=== PATIENT | male | born 1995 | race Caucasian/White ===

== ENCOUNTER 2020-03-18 10:08 | Emergency (ER) | payer MEDICAID, SELFPAY ==
[2020-03-18 10:15] VITALS: BP 130/56; PULSE 103; RESP 18; TEMP 36.6; O2SAT 99
--- NOTE | 2020-03-18 10:30 | DI.RAD_ITS ---
EXAM: XR WRIST RT COMPLETE CLINICAL HISTORY: fall injury TECHNIQUE: COMPARISON: No exams were available for comparison FINDINGS: Three views were obtained. There is a slight ulnar minus variance. Otherwise alignment appears with in normal limits. No fracture is seen. IMPRESSION:
--- NOTE | 2020-03-18 10:30 | DI.RAD_ITS ---
EXAM: XR ELBOW RT COMPLETE CLINICAL HISTORY: fall injury TECHNIQUE: COMPARISON: CR XR ELBOW LT COMPLETE from 03/18/2020 FINDINGS: Three views were obtained. There is fracture of the radial head and neck with minimal displacement. There is a joint effusion. No other bony abnormality seen. IMPRESSION:
--- NOTE | 2020-03-18 10:30 | DI.RAD_ITS ---
EXAM: XR ELBOW LT COMPLETE CLINICAL HISTORY: fall injury TECHNIQUE: COMPARISON: No exams were available for comparison FINDINGS: Three views were obtained. There is a minimally displaced fracture of the radial head involving the distal articular surface with Longitudinal alignment of the fracture plane. There is a joint effusion. No other fracture is ident ified. IMPRESSION:
--- NOTE | 2020-03-18 10:48 | ED.GENADUL_ITS ---
Discharge Plan Disposition Patient Disposition: HOME Condition: Stable Discharge Details Chief Complaint: Orthopedic Clinical Impression: Bilateral elbow fractures Primary Care Provider: Alexander Jc ED Provider: Tariq Mojica Home Meds and New Rx's Prescriptions: New oxycodone-acetaminophen [Percocet] 5-325 mg tablet 1 tab PO Q6H PRN (Reason: pain) Qty: 8 RF: 0 Discharge Instructions Instructions: Elbow Fracture (ED) Additional Instructions: Percocet as directed, remember this may cause drowsiness and/or constipation. Arwg-ung-milqnoy stool softener may be beneficial. Wear sling until reevaluation with orthopedics in the next week, I have placed you on the callback list and also given you their name and number. If you do not hear from them in the next 24 hours I recommend reaching out to them. Rest, elevate, cool compresses every 2 hours for 20 minutes. You may also use [id number] anti-inflammatory medication as directed for symptomatic control. Please watch for new or worsening symptoms and return to the ER for any concerns. Referrals: Adilson Malik MD [ [facility] STAFF PHYSICIAN] - Medical Decision Making 25-year-old gentleman with autism presents with his mother after multiple falls today. Falls were all mechanical. Patient denies striking his head during these falls. His only concerns are right elbow pain right wrist pain, left elbow pain, left ankle pain. His highest concern is that of the right elbow. Mother reports that he is at baseline. He appears well, nontoxic, no acute distress. Neuro, vascular, tendon intact. Will obtain x-ray of right wrist, right elbow, left elbow. Patient only has minimal swelling and discomfort to the left ankle, he is able to bear weight fully. I do not believe x-ray of the ankle is indicated. 800 mg p.o. Motrin given Left elbow x-ray read by me as radial head fracture. Right wrist x-ray read by me as no fracture. Right elbow x-ray read by me as radial head and neck fracture with minimal displacement. X-rays were then confirmed through radiology. Discussed x-rays with patient and mother. We discussed options. Both arms were placed in a sling. Patient tolerated well. Patient does live with both parents but spend more time at his father's house. Mother reports that she is an RN. We discussed in length whether or not care management need to be involved and help expedite outpatient care. She reports that she feels as though they have all the support and care they need as an outpatient and does not believe that a care management consultation is required. She is quite comfortable taking him home in his current condition. I will provide him a short-term prescription of analgesia, provide a referral to orthopedics, and place him on the orthopedic callback list to help expedite care. Medical Records Medical records reviewed: Yes I reviewed the patient's medical records. HPI General Mode of arrival: ambulatory . Date/Time Provider Initiated Documentation: 03/18/20 10:12 . Limitations to Documentation: no limitations . Information obtained by: patient and family . HPI Narrative: This is a 25-year-old gentleman with a history of autism presenting to the ER with his mother. Reports that he had 3 separate mechanical falls today. He denies striking his head during any of these falls. He reports he initially injured his right elbow and wrist, subsequently injured his left elbow and left ankle. He reports the pain in his right elbow and wrist is the worst, moderate at rest, worse with movement. Left elbow and left ankle mild discomfort. Patient is able to bear weight without difficulty. Denies numbness, tingling, weakness. Did not break the skin. Has not taken any medication [id number]. Related Data Home Medications Medication Instructions Recorded Confirmed oxycodone-acetaminophen [Percocet] 1 tab PO Q6H PRN #8 tab 03/18/20 Previous Rx's Medication Instructions Recorded oxycodone-acetaminophen [Percocet] 1 tab PO Q6H PRN #8 tab 03/18/20 Allergies Allergy/AdvReac Type Severity Reaction Status Date / Time Sulfa (Sulfonamide Allergy Unknown Unverified 03/18/20 10:22 Antibiotics) General Stated Complaint: Orthopedic BONIFACIO: 3 Review of Systems Constitutional Constitutional: Denies headache(s) and Denies weakness Eyes Eyes: Denies change in vision ENT Ears, Nose, Mouth, and Throat: Denies headache(s) and Denies neck pain Cardiovascular Cardiovascular: Denies chest pain and Denies dyspnea Respiratory Respiratory: Denies dyspnea Gastrointestinal Gastrointestinal: Denies nausea Musculoskeletal Musculoskeletal: Denies back pain, Denies neck pain, Denies numbness and Denies tingling Integumentary/Breasts Skin/Breast: Denies rash Neurologic Neurologic: Denies headache(s), Denies numbness, Denies tingling and Denies weakness [facility] Social History Smoking/Tobacco Use Status: Never Alcohol Intake: current Substance use type: does not use Do you feel safe at home: Yes Do you feel safe in your relationship?: Yes Exam Const General: cooperative, healthy appearing, comfortable and no acute distress Orientation: alert, awake and oriented x3 HENMT Head: normal to inspection, normocephalic and atraumatic Face and sinus: normal facial exam Mouth: moist mucous membranes Eyes General: appearance normal, both eyes and all related structures Alignment and Position: alignment normal Periorbital: periorbital findings normal Eyelids: eyelids normal Conjunctivae: conjunctivae normal Sclera: sclerae normal Cornea: corneas normal Pupils: PERRL EOM: EOM intact bilaterally Neck Neck: normal visual inspection, full ROM, trachea midline, supple and nontender Resp Effort & Inspection: normal respiratory effort and able to speak in complete sentences Cardio Rate: regular rate Rhythm: regular rhythm GI Palpation: soft and nontender Back/Spine/Pelvis Back: No back tenderness Skin General skin exam: no rashes or lesions noted Neuro General: patient alert, patient awake, moves all extremities, no focal motor deficits and other (Patient at baseline per mother) Cognition: normal cognition Speech: speech normal Gait: normal gait Motor: muscle tone normal throughout Sensory Exam: no sensory deficits noted Extrem Right upper extremity: shoulder/upper arm Details: normal to inspection and normal ROM; no tenderness, elbow/forearm Details: tenderness Location: of the olecranon, of the antecubital fossa and of the radial head and abnormal ROM Details: with range as follows (Limited extension and flexion) and wrist Details: normal to inspection and tenderness (Diffuse mild) Left upper extremity: shoulder/upper arm Details: inspection abnormal and normal ROM and elbow/forearm Details: tenderness Location: of the olecranon, of the antercubital fossa and of the radial head and abnormal ROM (Limited extension and flexion) Right lower extremity: normal to inspection, full ROM and normal capillary refill Left lower extremity: full ROM, normal capillary refill and ankle Details: tenderness (Minimal lateral aspect) and swelling (Minimal lateral aspect) Psych Appearance: grossly normal Mental Status: mental status grossly normal Course Vital Signs Vital signs: Vital Signs Temperature 36.6 C 03/18/20 10:15 Pulse 103 H 03/18/20 10:15 Respiratory Rate 18 03/18/20 10:15 Blood Pressure 130/56 L 03/18/20 10:15 Pulse Oximetry 99 03/18/20 10:15 Temperature 36.6 C 03/18/20 10:15 Temperature Source Temporal Artery Scan 03/18/20 10:15 Pulse 103 H 03/18/20 10:15 Respiratory Rate 18 03/18/20 10:15 Respiratory Effort Non-Labored 03/18/20 10:22 Blood Pressure 130/56 L 03/18/20 10:15 Pulse Oximetry 99 03/18/20 10:15 Oxygen Delivery Method Room Air 03/18/20 10:15 Oxygen Flow Rate 0 03/18/20 10:15 Pain Level 10 03/18/20 10:15
[2020-03-18] MEDS: Ibuprofen 800 MG TAB PO (11:35)
== END 2020-03-18 12:34 | disposition home or self-care (01) ==
PROVIDERS: Emergency Provider Physician Assistant; PCP Family Medicine
DX: S52.122A Displaced fracture of head of left radius, initial encounter for closed fracture (principal); S52.121A Displaced fracture of head of right radius, initial encounter for closed fracture; M25.531 Pain in right wrist; M25.562 Pain in left knee; W19.XXXA Unspecified fall, initial encounter; F84.0 Autistic disorder
CPT/HCPCS: 24650; 99284; 73080; 73110; 99282; L3650

== ENCOUNTER 2020-03-26 09:38 | Outpatient (CLI) | payer MEDICAID, SELFPAY ==
--- NOTE | 2020-03-26 09:15 | DI.RAD_ITS ---
EXAM: XR ELBOW RT COMPLETE CLINICAL HISTORY: f/u fracture. TECHNIQUE: 2D digital imaging was performed. COMPARISON: CR XR ELBOW RT COMPLETE from 03/18/2020 FINDINGS: BONES: No change in alignment of the fracture involving the right radial neck and head. No bony dest ructive lesion is seen. JOINTS: The elbow is normally aligned. Joint effusion. SOFT TISSUE: Normal. IMPRESSION: Stable radial fracture. DATA REPOSITORY: RADIATION DOSE DELIVERED:
--- NOTE | 2020-03-26 09:15 | DI.RAD_ITS ---
EXAM: XR ELBOW LT COMPLETE CLINICAL HISTORY: f/u fracture. TECHNIQUE: 2D digital imaging was performed. COMPARISON: CR XR ELBOW LT COMPLETE from 03/18/2020 FINDINGS: BONES: There has been no change in alignment of the radial head fracture. No bony destructive lesion is seen. JOINTS: The elbow is normally aligned. Small joint effusion. SOFT TISSUE: Normal. IMPRESSION: Stable radial head fracture. DATA REPOSITORY: RADIATION DOSE DELIVERED:
== END 2020-03-26 09:58 ==
PROVIDERS: PCP Family Medicine; Referring Provider Family Medicine; Visit Provider Student in an Organized Health Care Education/Training Program
DX: S52.134D Nondisplaced fracture of neck of right radius, subsequent encounter for closed fracture with routine healing (principal); S52.125D Nondisplaced fracture of head of left radius, subsequent encounter for closed fracture with routine healing
CPT/HCPCS: 73080

== ENCOUNTER 2020-04-19 15:30 | Outpatient (CLI) | payer MEDICAID, SELFPAY ==
--- NOTE | 2020-04-19 15:00 | DI.RAD_ITS ---
EXAM: XR ELBOW LT LIMITED INDICATION: eval healing. COMPARISON: CR XR ELBOW LT COMPLETE from 03/18/2020 CR XR ELBOW RT COMPLETE from 03/18/2020 CR XR WRIST RT COMPLETE from 03/18/2020 CR XR ELBOW LT COMPLETE from 03/26/2020 CR XR ELBOW RT COMPLETE from 03/26/2020 TECHNIQUE: 2D digital imaging was performed. FINDINGS: The fracture of the radial head and neck remains nondisplaced. There is mild increased callus format ion. A joint effusion remains present. No new abnormalities are seen. DATA REPOSITORY: RADIATION DOSE DELIVERED:
--- NOTE | 2020-04-19 15:20 | DI.RAD_ITS ---
EXAM: XR ELBOW RT LIMITED INDICATION: f/u right radius fracture. COMPARISON: CR XR ELBOW RT COMPLETE from 03/26/2020 CR XR ELBOW LT LIMITED from 04/19/2020 TECHNIQUE: 2D digital imaging was performed. FINDINGS: There is now mild callus formation seen at the site of the proximal radial neck. The joint effusion has decreased. No new abnormalities are seen. DATA REPOSITORY: RADIATION DOSE DELIVERED:
== END 2020-04-19 15:50 ==
PROVIDERS: PCP Family Medicine; Referring Provider Family Medicine; Visit Provider Student in an Organized Health Care Education/Training Program
DX: S52.131A Displaced fracture of neck of right radius, initial encounter for closed fracture (principal); S52.132A Displaced fracture of neck of left radius, initial encounter for closed fracture; S52.122A Displaced fracture of head of left radius, initial encounter for closed fracture; M25.422 Effusion, left elbow
CPT/HCPCS: 73070

== ENCOUNTER 2022-03-03 02:54 | Outpatient (CLI) | payer MEDICAID, SELFPAY ==
[2022-03-03 11:49] LABS: Abs Immature Grans 0.01 10^3/uL (0.0-0.06); Absolute Eosinophil Count 0.15 10^3/uL (0.0-0.7); Absolute Lymphocyte Count 2.48 10^3/uL (1.2-3.4); Absolute Monocyte Count 0.53 10^3/uL (0.1-0.8); Absolute Neutrophil Count 4.17 10^3/uL (1.2-6.7); Basophils % 1.3; HCT 44.3 % (40.0-50.0); HGB 15.2 g/dL (13.5-17.5); Immature Grans % 0.1; Lymphocytes % 33.3; MCHC 34.3 % (32.0-36.0); MCV 85 fL (80-95); MPV 8.3 fL (8.0-11.0); Monocytes % 7.1; Neutrophils % 56.2; Platelet Count 269 10^3/uL (130-400); RBC 5.24 10^6/uL (4.36-5.78); RDW 12.6 % (11.8-14.1); RDW-SD 38.8 fL; WBC 7.44 10^3/uL (4.4-10.8)
[2022-03-03 13:01] LABS: Anion Gap 4.4 mmol/L (3-11); BUN 17 mg/dL (7-18); CO2 32.6 mmol/L (21.0-32.0); Calcium 9.1 mg/dL (8.5-10.1); Calculated LDL 122 mg/dL (<100); Chloride 101 mmol/L (98-107); Cholesterol 194 mg/dL (<200); Glucose 87 mg/dL (74-106); HDL Cholesterol 48 mg/dL (40-60); Potassium 3.8 mmol/L (3.5-5.1); Sodium 138 mmol/L (136-145); TSH (W/Ref FT4) 2.73 uIU/mL (0.36-3.74); Triglyceride 121 mg/dL (<150)
== END 2022-03-03 02:55 | disposition home or self-care (01) ==
LOC: LBO 02:55
PROVIDERS: PCP Family Medicine; Visit Provider Family Medicine
DX: E03.9 Hypothyroidism, unspecified (principal); L64.8 Other androgenic alopecia; E66.09 Other obesity due to excess calories; Z68.39 Body mass index [BMI] 39.0-39.9, adult
CPT/HCPCS: 36415; 80048; 80061; 84443; 85025

== ENCOUNTER → 2022-05-01 02:43 | Outpatient (CLI) | payer MEDICAID, SELFPAY ==
--- NOTE | 2022-05-01 07:30 | DI.US_ITS ---
Exam(s) US HERNIA EXAM: US HERNIA CLINICAL HISTORY: r/o inguinal hernia, rt inguinal pain, R10.31 rt lower quad pain. TECHNIQUE: Ultrasound was performed using standard protocol. COMPARISON: No exams were available for comparison FINDINGS: Sonographic assessment utilizing grayscale and color Doppler imaging was performed and targeted to th e area of clinical concern. There does appear to be a small fat containing hernia in the right inguinal region. IMPRESSION: Findings suggestive of a small fat containing right inguinal hernia. A CT scan may be obtained for f urther evaluation. DATA REPOSITORY:
== END ==
PROVIDERS: PCP Family Medicine; Visit Provider Nurse Practitioner Family
DX: K40.90 Unilateral inguinal hernia, without obstruction or gangrene, not specified as recurrent
CPT/HCPCS: 76857

== ENCOUNTER 2022-05-26 08:02 | Day surgery (SDC) | payer MEDICAID, SELFPAY ==
--- NOTE | 2022-05-25 17:14 | PDOC.DSDIS_ITS ---
Discharge Plan Disposition Patient Disposition: HOME Condition: Good Discharge Details Reason For Visit: Right inguinal herniorraphy Attending Provider: uBcky Calvo Primary Care Provider: Laura Marsh Home Meds and New Rx's Prescriptions: New tramadol 100 mg tablet 100 mg PO BID PRN (Reason: pain) Qty: 6 0RF Rx Instructions: Take one tablet by mouth every 12 hours as needed for severe pain. Continued cholecalciferol (vitamin D3) 50 mcg (2,000 unit) capsule 50 mcg PO DAILY multivit with [id number] 0.4-600 mg-mcg tablet 1 tab PO DAILY Discharge Instructions Instructions: Inguinal Hernia Repair (DC) Additional Instructions: 1. Resume all of your medications. 2. Okay to use tylenol and ibuprofen over the counter as needed. 3. Use tramadol as needed for severe pain. 4. Leave bandage in place for 24 hours, then remove. 5. Shower with warm soapy water. Pat dry. Use a bandaid if needed to protect your clothing. 6. No soaking or tub baths until I see you in the office. 7. No heavy lifting until I see you in the office. 8.Call the office (or go directly to the emergency room after hours) if you notice any of the following: Develop chills (warm to touch), or if you have a thermometer and your temperature is above 101 Difficulty breathing or difficultly swallowing Persistent vomiting Any bleeding ? exceeding one tablespoon 6. Call your physician if the site where your intravenous was started becomes red, swollen, painful, and warm to touch. Referrals: Bucky Calvo MD [ [facility] STAFF PHYSICIAN] - (10-14 days for follow up) Activity:: Activity as Tolerated Remove Dressings/Wound Care:: 24 hours Shower/Bathe:: 24 hours Diet:: As Tolerated Discharge Orders Discharge Orders: Discharge Order (Routine); Ordered 05/25/22 Ordered By: Bucky Calvo DS: Diagnosis Discharge Diagnosis (1) Direct inguinal hernia of right side: Status: Acute Asessment and Plan: Follow up with me 10-14 days for routine follow
--- NOTE | 2022-05-25 17:18 | W.PM.OP ---
Date of service: 05/26/22 Time of Service: 11:52 Operative Note Operative Note DATE OF PROCEDURE: 05/26/22 PRE-OP DIAGNOSIS: Right inguinal hernia POST-OP DIAGNOSIS: same Direct right-sided inguinal hernia PROCEDURE: Open right inguinal herniorraphy with mesh SURGEON: Bucky Calvo DAY HABILITATION SPECIALIST: Faustina Joyce ANESTHESIA TYPE: General LMA/ETT Refer to Anesthesia Record ESTIMATED BLOOD LOSS: 30 PATHOLOGY: none sent COMPLICATIONS: None Patient was transported to: PACU Patient's condition: stable Implants: Bard mesh Indications: Recently, while walking on the treadmill, he noticed some discomfort in the right groin.? The discomfort has become more frequent, and he underwent an ultrasound that confirmed the diagnosis of a right inguinal hernia.? He is referred to me for that.? He denies any sense of bulge in the area.? He says it is not particularly painful.? He denies any symptoms of obstruction like nausea, vomiting, or otherwise unintentional weight loss. Findings: Direct inguinal hernia Procedure Description: I began by confirming the correct site with the patient. Next, after induction of general anesthesia and tap block by the anesthesia service, I prepped and draped the site in usual fashion. I began by making an oblique incision over the right inguinal region. I dissected down through the skin to the deep fascia. Next, I incised the fascia along the length of the inguinal canal to the external ring. I then carefully identified the ilioinguinal nerve and divided it with Metzenbaum scissors for therapeutic neurolysis. Once this was complete, I bluntly dissected the shelving edge of the inguinal ligament down towards the pubic tubercle. There was a large direct inguinal hernia pushing through the inguinal floor. Carefully dissected the cord structures and encircled them a Bassem drain. Next, I began dissecting the specific cord structures. Great care was taken to spare the vas deferens and the blood supply to the testicle. Next, I isolated the hernia sac from the other inguinal structures. I traced back up to the internal ring. There was no indirect component. Therefore I reduced the direct inguinal hernia. Next, I rebuilt the posterior floor of the inguinal canal with a large mesh patch. I started by fixing it to the pubic tubercle. Next, I used Prolene sutures to affix it to the shelving edge of the inguinal ligament and the conjoint tendon. Laterally I tacked it to the transversalis fascia and reconstructed an internal ring without any strain on the cord structures. Once this was complete, I irrigated the surgical field. It appeared hemostatic. I then closed the anterior portion of the fascia to reconstruct the front wall of the inguinal canal. I did this with interrupted Vicryl stitches. Once again, I irrigated the surgical field and inspected for hemostasis. Finally, I approximated the superficial fascia and the deep layers of the skin with absorbable suture. Skin was closed with subcuticular stitches. Bandages were applied, the patient was awakened and transferred to the recovery unit.
[2022-05-26] VITALS (11 sets, daily range): BP systolic 121–137; BP diastolic 69–90; PULSE 73–85; RESP 14–21; TEMP 36.3–36.7; O2SAT 93–98; BMI 39.2
[2022-05-26] MEDS: Acetaminophen 500 MG TAB 1000 MG PO (08:45)
[2022-05-26] MEDS: Celecoxib 200 MG CAP PO (08:46)
[2022-05-26] MEDS: Gabapentin 300 MG CAP 600 MG PO (08:46)
[2022-05-26] MEDS: Lactated Ringers 1,000 ML 80 ML IV (09:20)
--- NOTE | 2022-05-26 09:21 | W.ANESPRE ---
General Info Date of Service Date Performed: 05/26/22 Height: 5 ft 10 in Weight: 123.8 kg Body Mass Index (BMI): 39.2 Surgical Procedure: Operation Date: 05/26/22 09:10 Proposed Procedure Side Surgeon p Herniorrhaphy Inguinal w/Mesh Right Bucky Calvo MD Meds Allergies and Home Medications Allergies Allergy/AdvReac Type Severity Reaction Status Date / Time Sulfa (Sulfonamide Allergy Unknown Unverified 05/26/22 08:30 Antibiotics) Home Medication Medication Instructions Recorded cholecalciferol (vitamin D3) 50 50 mcg PO DAILY 04/21/22 mcg (2,000 unit) capsule multivit with minerals-folic 1 tab PO DAILY 04/21/22 acid-lycopene 0.4 mg-600 mcg tablet Current Visit Medications: Current Medications Generic Name Dose Route Start Last Admin Trade Name Freq PRN Reason Stop Dose Admin Acetaminophen 1,000 mg 05/26/22 06:00 05/26/22 08:45 Acetaminophen 500 Mg Tab PO 05/26/22 23:59 1,000 mg PREOP DARON Administration Acetaminophen 650 mg 05/25/22 17:19 Acetaminophen 325 Mg Tab PO Q4H PRN PRN Celecoxib 200 mg 05/26/22 06:00 05/26/22 08:46 Celecoxib 200 Mg Cap PO 05/26/22 23:59 200 mg PREOP DARON Administration Gabapentin 600 mg 05/26/22 06:00 05/26/22 08:46 Gabapentin 300 Mg Cap PO 05/26/22 23:59 600 mg PREOP DARON Administration Ringer's Solution 1,000 mls @ 80 mls/hr 05/26/22 06:00 IV 05/26/22 23:59 INFUSION DARON Cefazolin Sodium/Dextrose 2 gm in 50 mls @ 100 mls/hr 05/26/22 06:00 Ancef Duplex IVPB 05/26/22 23:59 PREOP DARON Ondansetron HCl 4 mg/ Sodium 52 mls @ 200 mls/hr 05/25/22 17:19 Chloride IVPB Q6H PRN PRN IV Miscellaneous Supplies 1 each 05/26/22 06:00 Iv Access IV 05/26/22 23:59 DIRECTED DARON Morphine Sulfate 2 mg 05/25/22 17:19 Morphine 4 Mg/Ml Syr IVP Q1H PRN PRN Sodium Chloride 0 ml 05/26/22 06:00 Normal Saline Flush 10 Ml Syr IV 05/26/22 23:59 PRN PRN Sodium Chloride 0 ml 05/26/22 06:00 Normal Saline 10 Ml Vial IJ 05/26/22 23:59 DIRECTED PRN Sterile Water 0 ml 05/26/22 06:00 Water,Injection,Sterile 10 Ml Vial IJ 05/26/22 23:59 DIRECTED PRN Tramadol HCl 100 mg 05/25/22 17:19 Tramadol 50 Mg Tab PO Q6H PRN PRN Pain PFSH Active Problems Active Problems: Problem Status Onset Code Right inguinal hernia K40.90 Alopecia, male pattern L64.9 Elevated BP without diagnosis of hypertension R03.0 Body mass index [BMI] 39.0-39.9, adult Z68.39 Obesity without serious comorbidity E66.9 Autism F84.0 ADHD F90.9 Medical History Medical History Fracture of radial head, left, closed Fracture of radial neck, right, closed Keratosis pilaris Surgical History Surgical History S/P appendectomy Tobacco Smoking/Tobacco Use Status: Never Passive smoking exposure: Yes Alcohol Alcohol Intake: current Alcohol intake frequency: holidays/special occasions only Substance Use Substance use: Never Substance use type: does not use Vital Signs and Lab Results Vital Signs Most Recent Vital Signs in EMR: Most Recent Vital Signs Temp Pulse Resp BP Pulse Ox 36.7 C 81 18 126/85 98 05/26/22 08:15 05/26/22 08:15 05/26/22 08:15 05/26/22 08:15 05/26/22 08:15 Lab Results Blood Type / Crossmatch: No Data to Display Complete Blood Count: No Data to Display Complete Metabolic Panel: No Data to Display Liver Function Panel: No Data to Display Coagulation Panel: No Data to Display Cardiac Panel: No Data to Display Arterial Blood Gas: No Data to Display Venous Blood Gas: No Data to Display Pancreas Panel: No Data to Display Thyroid Panel: No Data to Display Infectious Disease: No Data to Display Blood Cultures: No Data to Display Toxicology Panel: No Data to Display Anesthesia Assessment and Plan Anesthesia History Personal History: No History of Anesthesia Complications Family History: No Family History of Anesthesia Complications Exercise Tolerance Exercise Tolerance: Metabolic Equivalents>4 Pertinent Negatives Pertinent Negatives: No Symptoms of GERD, No Major Cardiovascular Symptoms or Complaints, No Major Pulmonary Symptoms or Complaints and No History of CVA/TIA Cardiac & Pulmonary Exam Cardiac Exam: Normal S1/S2 Heart Sounds Pulmonary Exam: Clear Bilateral Breath Sounds Implantable Cardiac Device Does patient have a Pacemaker or an ICD?: No Airway Exam Known Difficult Airway: No Mallampati Class: 1 Mouth Opening: Normal (> 3cm) Thyromental Distance: Greater than 3 cm Facial Hair: Full Armstrong Neck Range of Motion: Full ROM Neck Circumference: Normal Teeth Condition: Normal Dentition ASA Classification ASA Score: ASA 2 Emergency Case?: No NPO Status NPO Status: NPO Clears >2 hours, Solids >8 hours Anesthesia Plan Resuscitation Status: Full Code Anesthesia Technique: General Anesthesia Airway Planned: LMA Monitors Used: Standard Monitors
[2022-05-26] MEDS: ceFAZolin 2 GM/50 ML BAG IVPB (10:06)
--- NOTE | 2022-05-26 10:16 | W.ANESNERVE ---
Nerve Block Single Injection Procedure Date and Time Date Performed: 05/26/22 Procedure Start: 09:55 Location Where Procedure Performed Procedure Location: Operating Room Procedure Stop: 10:00 Reason Performed: Postoperative Analgesia Requesting Provider: Bucky Calvo Timeout Performed Timeout Performed: Yes Monitoring Used ECG, Blood Pressure, SpO2 and ETCO2 Sterility Sterility: Hand Hygiene, Surgical Cap, Surgical Mask, Sterile Gloves, Eye Protection and Chlorhexidine Sedation Given During Procedure Sedation Given (Indicate Dose Given): Versed IV Dose:: 2mg, Propofol IV Dose:: 150 mcg/kg/min and Ketamine IV Dose:: 20mg Patient Mental Status Patient Mental Status: Performed under general anesthesia Nerve Block 1st Nerve Block: Laterality: Right Block Type: TAP Unilateral (right) Needle / Catheter Used: 100mm SonoPlex II Local Anesthetic Bolus (Indicate Dose Given): None, Bupivacaine 0.25% Dose:: 20 cc and Exparel Dose:: 10 cc Additives (Indicate Dose Given): None Ultrasound: Sterile probe cover and gel used Ultrasound Image Saved?: Yes Nerve Stimulator: Not Used Paresthesia: None Procedure Tolerated: No Complications and Patient tolerated well Procedure Outcome: Successful Performed By: Jose Campos
[2022-05-26] MEDS: Lidocaine 1% Multi-Dose W/EPI 1/100,000 50 ML VIAL (11:20)
--- NOTE | 2022-05-26 12:50 | W.ANESPRE ---
General Info Date of Service Date Performed: 05/26/22 Height: 5 ft 10 in Weight: 123.8 kg Body Mass Index (BMI): 39.2 Surgical Procedure: Operation Date: 05/26/22 09:10 Proposed Procedure Side Surgeon p Herniorrhaphy Inguinal w/Mesh Right Bucky Calvo MD Meds Allergies and Home Medications Allergies Allergy/AdvReac Type Severity Reaction Status Date / Time Sulfa (Sulfonamide Allergy Unknown Unverified 05/26/22 08:30 Antibiotics) Home Medication Medication Instructions Recorded cholecalciferol (vitamin D3) 50 50 mcg PO DAILY 04/21/22 mcg (2,000 unit) capsule multivit with minerals-folic 1 tab PO DAILY 04/21/22 acid-lycopene 0.4 mg-600 mcg tablet tramadol 100 mg tablet 100 mg PO BID PRN pain #6 tabs 05/26/22 Current Visit Medications: Current Medications Generic Name Dose Route Start Last Admin Trade Name Freq PRN Reason Stop Dose Admin Acetaminophen 1,000 mg 05/26/22 06:00 05/26/22 08:45 Acetaminophen 500 Mg Tab PO 05/26/22 23:59 1,000 mg PREOP DARON Administration Acetaminophen 650 mg 05/25/22 17:19 Acetaminophen 325 Mg Tab PO Q4H PRN PRN Celecoxib 200 mg 05/26/22 06:00 05/26/22 08:46 Celecoxib 200 Mg Cap PO 05/26/22 23:59 200 mg PREOP DARON Administration Ephedrine Sulfate 0 mg 05/26/22 10:23 Ephedrine 25 Mg/5 Ml Syringe IVP DIRECTED PRN Fentanyl 0 mcg 05/26/22 10:23 Fentanyl 100 Mcg/2 Ml Vial IVP DIRECTED PRN Gabapentin 600 mg 05/26/22 06:00 05/26/22 08:46 Gabapentin 300 Mg Cap PO 05/26/22 23:59 600 mg PREOP DARON Administration Ringer's Solution 1,000 mls @ 80 mls/hr 05/26/22 06:00 05/26/22 11:53 IV 05/26/22 23:59 80 mls/hr INFUSION DARON Infusion Cefazolin Sodium/Dextrose 2 gm in 50 mls @ 100 mls/hr 05/26/22 06:00 05/26/22 10:26 Ancef Duplex IVPB 05/26/22 23:59 Infused PREOP DARON Infusion Ondansetron HCl 4 mg/ Sodium 52 mls @ 200 mls/hr 05/25/22 17:19 Chloride IVPB Q6H PRN PRN Ringer's Solution 1,000 mls @ 30 mls/hr 05/26/22 10:30 IV INFUSION DARON IV Miscellaneous Supplies 1 each 05/26/22 06:00 Iv Access IV 05/26/22 23:59 DIRECTED DARON Morphine Sulfate 2 mg 05/25/22 17:19 Morphine 4 Mg/Ml Syr IVP Q1H PRN PRN Morphine Sulfate 0 mg 05/26/22 10:23 Morphine 10 Mg/Ml Vial IVP DIRECTED PRN Naloxone HCl 0 mg 05/26/22 10:23 Naloxone 0.4 Mg/Ml Vial IVP PRN PRN Ondansetron HCl 4 mg 05/26/22 10:23 Ondansetron 4 Mg/2 Ml Vial IVP .X 1 DOSE PRN Nausea Sodium Chloride 0 ml 05/26/22 06:00 Normal Saline Flush 10 Ml Syr IV 05/26/22 23:59 PRN PRN Sodium Chloride 0 ml 05/26/22 06:00 Normal Saline 10 Ml Vial IJ 05/26/22 23:59 DIRECTED PRN Sterile Water 0 ml 05/26/22 06:00 Water,Injection,Sterile 10 Ml Vial IJ 05/26/22 23:59 DIRECTED PRN Tramadol HCl 100 mg 05/25/22 17:19 Tramadol 50 Mg Tab PO Q6H PRN PRN Pain PFSH Active Problems Active Problems: Problem Status Onset Code Direct inguinal hernia of right side K40.90 Right inguinal hernia K40.90 Alopecia, male pattern L64.9 Elevated BP without diagnosis of hypertension R03.0 Body mass index [BMI] 39.0-39.9, adult Z68.39 Obesity without serious comorbidity E66.9 Autism F84.0 ADHD F90.9 Medical History Medical History Fracture of radial head, left, closed Fracture of radial neck, right, closed Keratosis pilaris Surgical History Surgical History S/P appendectomy Tobacco Smoking/Tobacco Use Status: Never Passive smoking exposure: Yes Alcohol Alcohol Intake: current Alcohol intake frequency: holidays/special occasions only Substance Use Substance use: Never Substance use type: does not use Vital Signs and Lab Results Vital Signs Most Recent Vital Signs in EMR: Most Recent Vital Signs Temp Pulse Resp BP Pulse Ox 36.3 C L 80 20 135/86 95 05/26/22 12:25 05/26/22 12:40 05/26/22 12:40 05/26/22 12:40 05/26/22 12:40 Lab Results Blood Type / Crossmatch: No Data to Display Complete Blood Count: No Data to Display Complete Metabolic Panel: No Data to Display Liver Function Panel: No Data to Display Coagulation Panel: No Data to Display Cardiac Panel: No Data to Display Arterial Blood Gas: No Data to Display Venous Blood Gas: No Data to Display Pancreas Panel: No Data to Display Thyroid Panel: No Data to Display Infectious Disease: No Data to Display Blood Cultures: No Data to Display Toxicology Panel: No Data to Display Anesthesia Assessment and Plan Anesthesia History Personal History: No History of Anesthesia Complications Family History: No Family History of Anesthesia Complications Exercise Tolerance Exercise Tolerance: Metabolic Equivalents>4 Pertinent Negatives Pertinent Negatives: No Symptoms of GERD, No Major Cardiovascular Symptoms or Complaints, No Major Pulmonary Symptoms or Complaints (Quit smoking 30 years ago) and No History of CVA/TIA Cardiac & Pulmonary Exam Cardiac Exam: Normal S1/S2 Heart Sounds Pulmonary Exam: Clear Bilateral Breath Sounds Implantable Cardiac Device Does patient have a Pacemaker or an ICD?: No Airway Exam Known Difficult Airway: No Mallampati Class: 1 Mouth Opening: Normal (> 3cm) Thyromental Distance: Greater than 3 cm Neck Range of Motion: Full ROM Neck Circumference: Normal Teeth Condition: Normal Dentition ASA Classification ASA Score: ASA 2 Emergency Case?: No NPO Status NPO Status: NPO Clears >2 hours, Solids >8 hours Anesthesia Plan Resuscitation Status: Full Code Anesthesia Technique: General Anesthesia Airway Planned: Natural Airway Monitors Used: Standard Monitors
[2022-05-26] MEDS: Ondansetron 4 MG/2 ML VIAL IVP (13:23)
--- NOTE | 2022-05-26 14:46 | W.ANESPOSTOP ---
Postoperative Evaluation Date, Time and Location Date Performed: 05/26/22 Time Performed: 14:47 Patient Location: Day Surgery Unit Vital Signs Most Recent Imported Vital Signs: Most Recent Vital Signs Temp Pulse Resp BP Pulse Ox 36.3 C L 80 14 128/83 93 05/26/22 14:14 05/26/22 14:14 05/26/22 14:14 05/26/22 14:14 05/26/22 14:14 Pain Score Most Recent Pain Score: Most Recent Pain Score Pain Level 1 05/26/22 14:14 Assessment Mental Status: Awake (Alert & Oriented to Patient Baseline) Airway and Respiratory Function: Patent airway with normal (patient baseline) respiratory exam Cardiovascular Function: Hemodynamically Stable Hydration Status: Adequately Hydrated Nausea & Vomiting: No Nausea or Vomiting Pain: Pt. Denies Any Pain Peripheral Nerve Block: Patient did not receive a nerve block
== END 2022-05-26 15:20 | disposition home or self-care (01) ==
PROVIDERS: PCP Family Medicine; Visit Provider Surgery
PROC: (CPT 49505; principal; 2022-05-26 09:00)
DX: K40.90 Unilateral inguinal hernia, without obstruction or gangrene, not specified as recurrent (principal); E66.9 Obesity, unspecified
CPT/HCPCS: 49505; 76942; C1781; J0131; J0690; J1100; J1885; J2250; J2405